=== PATIENT | female | born 1975 | race African-American/Black ===

== ENCOUNTER 2016-12-12 16:25 | Emergency (ER) | payer OTHER ==
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
== END 2016-12-12 17:06 | disposition home or self-care (01) ==
LOC: CFTX 16:25
DX: S22.32XA Fracture of one rib, left side, initial encounter for closed fracture (principal); Z98.51 Tubal ligation status; Z87.891 Personal history of nicotine dependence; V89.2XXA Person injured in unspecified motor-vehicle accident, traffic, initial encounter; Y92.410 Unspecified street and highway as the place of occurrence of the external cause
CPT/HCPCS: 70450; 70486; 71101; 73560; 99284